=== PATIENT | female | born 1965 | race Caucasian/White ===

== ENCOUNTER 2018-08-21 15:45 | Emergency (ER) | payer MEDICAID ==
[~2018-08-21] VITALS: Ht 160 cm; Wt 63.0 kg
[2018-08-21 17:31] VITALS: BP 136/84
== END 2018-08-21 17:33 | disposition home or self-care (01) ==
LOC: ER 15:45
DX: S46.811A Strain of other muscles, fascia and tendons at shoulder and upper arm level, right arm, initial encounter (principal); E11.9 Type 2 diabetes mellitus without complications; E78.00 Pure hypercholesterolemia, unspecified; I10 Essential (primary) hypertension; X58.XXXA Exposure to other specified factors, initial encounter; Y93.89 Activity, other specified; Y92.89 Other specified places as the place of occurrence of the external cause; Y99.8 Other external cause status; Z90.49 Acquired absence of other specified parts of digestive tract
CPT/HCPCS: 99282; 99283

== ENCOUNTER 2021-04-06 17:00 | Emergency (ER) | payer MEDICAID ==
[~2021-04-06] VITALS: Ht 134.6 cm; Wt 64.0 kg
[2021-04-06 17:55] VITALS: BP 143/73
== END 2021-04-06 19:58 | disposition left against medical advice (07) ==
LOC: ER 17:00
DX: R10.9 Unspecified abdominal pain (principal); Z53.21 Procedure and treatment not carried out due to patient leaving prior to being seen by health care provider